=== PATIENT | male | born 1995 | race African-American/Black ===

== ENCOUNTER 2021-07-27 09:23 | Emergency (ER) | payer OTHER ==
[~2021-07-27] VITALS: Ht 180.3 cm; Wt 116.0 kg
--- NOTE | 2021-07-27 09:25 | PHYS DOC ---
General Adult HPI: HPI: Patient is a 26 year old male who presents with asthma attack. Patient comes to the ER complaining of worsening asthma symptoms over the last week. Had been using his inhaler more than usual but ran out of inhaler earlier today. Complains of shortness of breath and mild cough symptoms. Cough is nonproductive. No fever. No upper airway congestion. No severe symptoms. Has required admission previously for asthma but not required intubation. Review of Systems: Review of Systems: Constitutional: Denies fever or chills Eyes: Denies change in visual acuity HENT: Denies nasal congestion or sore throat Respiratory: as documented in HPI Cardiovascular: Denies chest pain or edema GI: Denies abdominal pain, nausea, vomiting, bloody stools or diarrhea : Denies dysuria Musculoskeletal: Denies back pain or joint pain Integument: Denies rash Neurologic: Denies headache, focal weakness or sensory changes Endocrine: Denies polyuria or polydipsia Lymphatic: Denies swollen glands Psychiatric: Denies depression or anxiety Physical Exam: PE: Constitutional: Well developed, well nourished, mild increased work of breathing HENT: Normocephalic, atraumatic, bilateral external ears normal, oropharynx moist, no oral exudates, nose normal Eyes: PERRLA, EOMI, conjunctiva normal, no discharge Neck: Normal range of motion Cardiovascular:Heart rate regular rhythm, no murmur Lungs & Thorax: Mild increased work of breathing, prolonged expiratory phase. Wheezes bilaterally in all wilson. Skin: Warm, dry, no erythema, no rash Back: Normal ROM Extremities: No edema Neurologic: Alert and oriented X 3 EKG: EKG: [] Radiology/Procedures: Radiology/Procedures: [] Heart Score: C/O Chest Pain: No Risk Factors: Risk Factors: DM, Current or recent (<one month) smoker, HTN, HLP, family history of CAD, obesity. Risk Scores: Score 0 - 3: 2.5% MACE over next 6 weeks - Discharge Home Score 4 - 6: 20.3% MACE over next 6 weeks - Admit for Clinical Observation Score 7 - 10: 72.7% MACE over next 6 weeks - Early Invasive Strategies Course & Med Decision Making: Course & Med Decision Making Pertinent Labs and Imaging studies reviewed. (See chart for details) Seen and examined on arrival to his room. Will give DuoNeb treatment and prednisone and reevaluate 10:00: Reevaluated. Is improved but has continued wheezes. Additional albuterol treatment ordered. Oxygen saturation remains greater than 95%. 10:40: Lungs clear. Increased work of breathing is entirely resolved. Patient is stable for discharge home. Prescriptions are sent for albuterol nebulized solution, albuterol inhaler, prednisone. Diagnosis is explained to him and all of his questions were answered. Recommended he follow-up with his primary care doctor or establish care with one if he does not already have one. Come back to the ER for any severely worsening symptoms. Placed on 5-day burst of prednisone. Dragon Disclaimer: Dragon Disclaimer: This electronic medical record was generated, in whole or in part, using a voice recognition dictation system. Departure Departure: Impression: Primary Impression: Asthma exacerbation Disposition: HOME / SELF CARE / HOMELESS Condition: IMPROVED Referrals: PCP,NO (PCP) Patient Instructions: Asthma, Adult Scripts Albuterol Sulfate (ALBUTEROL SULFATE CONC NEB SOLN) 2.5 Mg/0.5 Ml Vial.neb 1 VIAL NEB Q4HRS, #60 VIAL 1 Refill Prov: MATT SHEN DO 07/27/21 Albuterol Sulfate (VENTOLIN HFA INHALER) 18 Gm Hfa.aer.ad 2 PUFF IH PRN Q4HRS PRN for FOR ASTHMA, #1 EACH 2 Refills Prov: MATT SHEN DO 07/27/21 Prednisone (PREDNISONE) 50 Mg Tablet 1 TAB PO DAILY, #5 TAB Prov: MATT SHEN DO 07/27/21 MATT SHEN DO Jul 27, 2021 09:25
[2021-07-27] MEDS ORDERED: predniSONE 20 MG TABLET PO ONE ×2 (09:30→09:45)
[2021-07-27] MEDS ORDERED: IPRATRPIUM/ALBUTEROL 0.5/2.5MG 3 ML NEBU. NEB ONE (09:30)
[2021-07-27] MEDS ORDERED: predniSONE 10 MG TABLET. ONE (09:42)
[2021-07-27] MEDS ORDERED: predniSONE 10 MG TABLET. PO ONE (09:45)
[2021-07-27] MEDS ORDERED: ALBUTEROL SULFATE 2.5 MG/3 ML NEBU. CONT NEB PRN (10:00)
[2021-07-27] MEDS ORDERED: ALBU2.5V8 IH (10:09)
[2021-07-27] MEDS ORDERED: PRED50TA PO (10:09)
[2021-07-27] MEDS ORDERED: ALBU2.5V14 NEB (10:09)
[2021-07-27 10:49] VITALS: BP 152/89
== END 2021-07-27 10:49 | disposition home or self-care (01) ==
LOC: ER 09:23
DX: J45.901 Unspecified asthma with (acute) exacerbation (principal)
CPT/HCPCS: 94640; 94644; 99285; J7512; J7613